=== PATIENT | female | born 1975 | race Caucasian/White ===

== ENCOUNTER 2017-08-27 11:12 | Day surgery (SDC) | payer BC, OTHER ==
--- NOTE | 2017-08-27 11:23 | PDPROPOC ---
Sedation Plan of Care Sedation Plan of Care: vital signs stable, mental status noted, patient educated of risks, benefits, alternatives, patient can tolerate sedation ASA Classification: ASA 1 Planned drugs: fentanyl, midazolam Mallampati Score: Class 1 Mallampati Reference Image: Patient passed 3-3-2 rule?: Yes
--- NOTE | 2017-08-27 11:25 | PDGENHP ---
History & Physical Chief Complaint: SVT History of Present Illness: SVT. Had LINQ monitor in, wants it removed Pertinent Past, Social, Family History: noted. Seizure Relevant Physical Exam: s1s2 rrr. cta. a/o x 3 Cardiorespiratory Assessment: LINQ explant planned
[2017-08-27] MEDS ORDERED: LIDOCAINE 1% 300 MG/30 ML SDV ONE (11:30)
--- NOTE | 2017-08-28 08:31 | CPIP ---
[f rep st] INVASIVE CARDIAC PROCEDURE PROCEDURE PERFORMED: Explantation of [employer] LINQ monitor. Indication for original implantation was palpitations and syncope post EP study. 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 PROCEDURE: Written, informed consent was obtained. IV was placed. Patient did not want any sedatio n. After local anesthetic infiltration under all sterile conditions, using blunt and sharp dissectio n and electrocautery, the device was removed, and the wound was closed with 3 kenji. There were no complications. /[id number]/MODL
== END 2017-08-27 13:00 | disposition home or self-care (01) ==
LOC: FCATH 11:12
PROVIDERS: ATTEND Internal Medicine Cardiovascular Disease
PROC: 0JPT02Z Removal of Monitoring Device from Trunk Subcutaneous Tissue and Fascia, Open Approach (ICD-10-PCS; principal; 2017-08-27)
DX: Z45.09 Encounter for adjustment and management of other cardiac device (principal); I47.1 Supraventricular tachycardia